=== PATIENT | male | born 1955 | race Caucasian/White ===

== ENCOUNTER 2018-08-23 09:42 | Emergency (ER) | payer MEDICARE ==
[~2018-08-23] VITALS: Ht 292.1 cm; Wt 81.0 kg
[2018-08-23] MEDS ORDERED: ASPIRIN81 MG PO (10:08)
[2018-08-23] MEDS ORDERED: ATENOLOL50 MG PO (10:09)
[2018-08-23] MEDS ORDERED: RAMIPRIL2.5 MG PO (10:09)
[2018-08-23] MEDS ORDERED: CITALOPRAM20 MG PO (10:09)
[2018-08-23] MEDS ORDERED: SIMVASTATIN20 MG PO (10:09)
[2018-08-23] MEDS ORDERED: NAPROSYN250 MG PO (10:10)
[2018-08-23] MEDS ORDERED: BACTRIM DS1 TAB PO (11:57)
[2018-08-23] MEDS ORDERED: CEPHALEXIN500 M1 PO (11:57)
[2018-08-23] MEDS ORDERED: LORTAB 1010 MG PO (11:57)
[2018-08-23 12:02] VITALS: BP 100/52
== END 2018-08-23 12:15 | disposition home or self-care (01) ==
LOC: ED 09:42
PROC: 0V950ZZ Drainage of Scrotum, Open Approach (ICD-10-PCS; principal; 2018-08-23)
DX: N49.2 Inflammatory disorders of scrotum (principal)

== ENCOUNTER 2018-08-24 09:59 | Emergency (ER) | payer MEDICARE ==
[~2018-08-24] VITALS: Ht 182.9 cm; Wt 81.8 kg
[~2018-08-24 09:59] MED LIST: ASPIRIN81 MG PO; ATENOLOL50 MG PO; BACTRIM DS1 TAB PO; CEPHALEXIN500 M1 PO; CITALOPRAM20 MG PO; LORTAB 1010 MG PO; NAPROSYN250 MG PO; RAMIPRIL2.5 MG PO; SIMVASTATIN20 MG PO
[2018-08-24 10:34] VITALS: BP 109/58
== END 2018-08-24 10:38 | disposition home or self-care (01) ==
LOC: ED 09:59
DX: Z48.01 Encounter for change or removal of surgical wound dressing (principal)